=== PATIENT | female | born 1945 | race Asian ===

== ENCOUNTER 2023-09-15 08:30 | Outpatient (RCR) | payer OTHER, SELFPAY | END 2023-09-15 23:59 | disposition home or self-care (01) | LOC: ROT 08:30 | PROVIDERS: ATTENDING PHYSICIAN Student in an Organized Health Care Education/Training Program | DX: M25.541 Pain in joints of right hand (principal); Z73.6 Limitation of activities due to disability | CPT/HCPCS: 97166; 97535 ==

== ENCOUNTER → 2024-01-24 06:25 | Day surgery (SDC) | payer OTHER, SELFPAY ==
[2024-01-24 08:28] LABS: Glucose - Point of Care 156 mg/dl (70-99)
== END ==
LOC: GI 06:25
PROVIDERS: ATTENDING PHYSICIAN Internal Medicine Gastroenterology
DX: Z12.11 Encounter for screening for malignant neoplasm of colon (principal); K57.30 Diverticulosis of large intestine without perforation or abscess without bleeding; K64.8 Other hemorrhoids; Z98.0 Intestinal bypass and anastomosis status; Z85.038 Personal history of other malignant neoplasm of large intestine; D12.2 Benign neoplasm of ascending colon
CPT/HCPCS: 45380; 88305; 82962

== ENCOUNTER → 2024-03-29 09:52 | Outpatient (REF) | payer OTHER, SELFPAY | LOC: RAD 09:52 | PROVIDERS: ATTENDING PHYSICIAN Nurse Practitioner Family | DX: Z87.39 Personal history of other diseases of the musculoskeletal system and connective tissue (principal) | CPT/HCPCS: 77080 ==

== ENCOUNTER 2024-05-21 08:59 | Outpatient (RCR) | payer OTHER, SELFPAY | END 2024-05-21 23:59 | disposition home or self-care (01) | LOC: ROT 08:59 | PROVIDERS: ATTENDING PHYSICIAN Student in an Organized Health Care Education/Training Program; FAMILY PHYSICIAN Nurse Practitioner Family | DX: M25.531 Pain in right wrist (principal); Z73.6 Limitation of activities due to disability; M81.0 Age-related osteoporosis without current pathological fracture | CPT/HCPCS: 97010; 97022; 97110; 97140; 97165; 97535 ==

== ENCOUNTER 2024-08-28 08:16 | Outpatient (RCR) | payer OTHER, SELFPAY | END 2024-08-28 23:59 | disposition home or self-care (01) | LOC: RPT 08:16 | PROVIDERS: ATTENDING PHYSICIAN Nurse Practitioner Family | DX: R29.898 Other symptoms and signs involving the musculoskeletal system (principal) | CPT/HCPCS: 97110; 97161 ==

== ENCOUNTER 2024-10-01 09:37 | Outpatient (RCR) | payer OTHER, SELFPAY | END 2024-10-01 23:59 | disposition home or self-care (01) | LOC: RPT 09:37 | PROVIDERS: ATTENDING PHYSICIAN Nurse Practitioner Family | DX: R29.898 Other symptoms and signs involving the musculoskeletal system (principal); Z73.6 Limitation of activities due to disability; M62.81 Muscle weakness (generalized); R10.32 Left lower quadrant pain | CPT/HCPCS: 97110; 97112 ==

== ENCOUNTER 2024-10-10 08:58 | Outpatient (RCR) | payer OTHER, SELFPAY | END 2024-10-10 13:07 | disposition home or self-care (01) | LOC: RPT 08:58 | PROVIDERS: ATTENDING PHYSICIAN Nurse Practitioner Family | DX: R29.898 Other symptoms and signs involving the musculoskeletal system (principal); Z73.6 Limitation of activities due to disability; M62.81 Muscle weakness (generalized); R10.32 Left lower quadrant pain | CPT/HCPCS: 97110; 97112; 97530 ==

== ENCOUNTER → 2025-03-14 10:44 | Outpatient (REF) | payer OTHER, SELFPAY | LOC: RCS 10:44 | PROVIDERS: ATTENDING PHYSICIAN Student in an Organized Health Care Education/Training Program; FAMILY PHYSICIAN Family Medicine | DX: R06.09 Other forms of dyspnea (principal) | CPT/HCPCS: 93306 ==

== ENCOUNTER → 2025-03-26 10:14 | Outpatient (REF) | payer OTHER, SELFPAY | LOC: RCS 10:14 | PROVIDERS: ATTENDING PHYSICIAN Student in an Organized Health Care Education/Training Program; FAMILY PHYSICIAN Family Medicine; REFERRING PHYSICIAN Nurse Practitioner Family | DX: R06.09 Other forms of dyspnea (principal) | CPT/HCPCS: 93017 ==